=== PATIENT | female | born 1955 | race Caucasian/White ===

== ENCOUNTER 2016-04-12 07:20 | Inpatient (IN) | payer BC ==
[2016-03-31 13:18] LABS: BASOPHILS 0.3 %; BASOPHILS ABSOLUTE 0.02 10/3/uL (0.0-0.16); EOSINOPHILS 3.1 %; EOSINOPHILS ABSOLUTE 0.19 10/3/uL (0.0-0.53); HEMATOCRIT 38.2 % (36.0-48.0); HEMOGLOBIN 12.6 g/dL (12.0-16.0); IMMATURE GRANULOCYTES 0.3 %; IMMATURE GRANULOCYTES ABSOLUTE 0.02 10/3/uL (0.0-0.11); LYMPHOCYTES 27.1 %; LYMPHOCYTES ABSOLUTE 1.67 10/3/uL (0.67-4.30); MEAN CORPUSCULAR HEMOGLOB 28.8 pg (26.0-34.0); MEAN CORPUSCULAR VOLUME 87.4 fL (80-100); MEAN PLATELET VOLUME 9.2 fL (9.2-13.0); MONOCYTES 6.3 %; MONOCYTES ABSOLUTE 0.39 10/3/uL (0.21-1.20); NEUTROPHILS 62.9 %; NEUTROPHILS ABSOLUTE 3.88 10/3/uL (2.02-8.40); PLATELET COUNT 297 10/3/uL (150-400); RBC DISTRIBUTION WIDTH 13.1 % (12.0-16.0); RED CELL COUNT 4.37 10/6/uL (4.0-5.6); WHITE BLOOD CELLS 6.2 10/3/uL (4.5-10.5)
[2016-03-31 13:19] LABS: MANUAL DIFF NO %
[2016-03-31 13:24] LABS: INTERNATIONAL NORMAL RATI 1.1 UNITS (-); PARTIAL THROMBO TIME 28.3 SEC (22.5-37.2); PROTIME (NOT ORD) 13.8 SEC (12.0-14.5)
[2016-03-31 13:30] LABS: A/G RATIO 1.1 (0.7-1.9); ALBUMIN 3.9 G/DL (3.5-5.0); ALKALINE PHOSPHATASE 86 U/L (45-117); BUN (BLOOD UREA NITROGEN) 20 MG/DL (6-23); CALCIUM, SERUM 8.9 MG/DL (8.5-10.4); CHLORIDE, SERUM 104 MMOL/L (96-112); CO2 (CARBON DIOXIDE) 27 MMOL/L (24-34); CREATININE 0.57 MG/DL (0.55-1.02); GFR AFRICAN AMERICAN 115 ML/MIN (>=60); GFR NON AFRICAN AMERICAN 99 ML/MIN (>=60); GLOBULIN 3.4 G/DL (2.5-4.1); GLUCOSE, SERUM 113 MG/DL (60-99); POTASSIUM, SERUM 4.2 MMOL/L (3.5-5.3); SGOT(AST) 20 U/L (5-40); SGPT(ALT) 36 U/L (5-65); SODIUM, SERUM 140 MMOL/L (135-148); TOTAL BILIRUBIN 0.3 MG/DL (0-1.2); TOTAL PROTEIN 7.3 G/DL (6.0-8.5)
[2016-03-31 13:36] LABS: ASCORBIC ACID (UR NOT ORDER) NEG (NEG); BILIRUBIN, URINE NEGATIVE (NEG); KETONE, URINE NEGATIVE (NEG); LEUKOCYTE ESTERASE(NOT OR NEG (NEG); WBC (NOT ORDERED) (RFLEX) < 1 (0-5)
--- NOTE | ~2016-04-12 | OP ---
Record Of Operation [facility] [address] [place]. [address] NAME: ODELL BAKER : 53 STATUS : ADM IN [facility]#: [id number] AGE: 61 ADM/REG DATE : 04/12/16 MR#: [id number] REPORT SERV DATE: 04/12/16 DICTATED BY: DWAYNE ROUSE DATE: 04/12/16 REPORT STATUS : Draft TRANSCRIBED BY: MODL DATE: 04/12/16 DATE OF PROCEDURE: 04/12/2016 PREOPERATIVE DIAGNOSIS: Severe bilateral varus osteoarthritis of the knee. POSTOPERATIVE DIAGNOSIS: Severe bilateral varus osteoarthritis of the knee. PROCEDURE: Bilateral unicondylar knee arthroplasty. SURGEON: Dwayne Rouse M.D. INSPECTOR REPAIRER: Cierra Delgado. SECOND RANCH RIDER: Aury Gandhi. ANESTHESIA: Spinal with MAC. ESTIMATED BLOOD LOSS: 100 mL. COMPLICATIONS: None. DRAINS: Hemovac x1 bilaterally. IMPLANTS: DePuy size 3 right medial and femoral component and size 3 right medial tibial component with an 8 mm thick tibial polyethylene insert on the right. On the left, it was a size 3 of medial femoral component and a size 2 medial tibial component and a 7 mm thick tibial polyethylene insert. The components were cemented in place with [employer] Simplex SpeedSet bone cement. INDICATIONS FOR SURGERY: Ms Baker is a 61-year-old female with severe bilateral varus osteoarthritis of the knees. She has had unremitting pain, which has been refractory to medical management. She presents requesting the above-mentioned procedure. Risks of the procedure as detailed in the history and physical and operative consent were discussed prior to proceeding. She fully understood and has requested to proceed. PROCEDURE IN DETAIL: The patient was brought to the operating room and after adequate anesthesia had been obtained, the patient was positioned in the supine position. All appropriate pressure points were padded. Appropriate preoperative antibiotics were given intravenous. The operative lower extremity was then reaffirmed with a time-out and was then prepped and draped in the usual sterile fashion. The leg was exsanguinated with an Vance wrap and a tourniquet inflated to 350 mmHg pressure. A mini median parapatellar approach to the knee was performed. The skin and subcutaneous tissues were incised sharply with a #10 blade. Electrocautery was used as needed to maintain hemostasis. A retinaculum was divided and minimal subcutaneous flaps created to facilitate exposure. The distal portion of the median Record Of Operation [facility] [address] [place]. [address] NAME: ODELL BAKER : 53 STATUS : ADM IN PAT#: [id number] AGE: 61 ADM/REG DATE : 04/12/16 MR#: [id number] REPORT SERV DATE: 04/12/16 DICTATED BY: DWAYNE ROUSE DATE: 04/12/16 REPORT STATUS : Draft TRANSCRIBED BY: NATALIE DATE: 04/12/16 parapatellar arthrotomy was then carried out with a fresh #10 blade. A portion of the retropatellar fat pad was debrided to facilitate visualization and the ligamentum mucosum resected. The medial tibia was exposed sub-periosteally. The medial meniscus was resected. The knee was then placed in a [id number]-mr-fyca testing and an [employer] retractor used to retract the patellar fat pad. The lateral compartment of the knee was inspected. The articular cartilage was normal in appearance, as was the lateral meniscus. The anterior and posterior cruciate ligaments were inspected and were normal. At this point, it was elected to proceed with an unicondylar knee arthroplasty. Attention was then turned to the tibia. The extramedullary alignment guide was set at neutral varus/valgus to match the patient's posterior tibial slope. A tibial resection was carried out taking 2 mm from the most affected portion of the tibia. The vertical cut of the medial tibial plateau was then created using a reciprocating saw and the tibial fragment excised. The appropriate tibial implant size was then chosen based on the size of the tibial fragment. Attention was then turned to the femur. The extramedullary distal femoral resection guide was secured with the knee in extension and appropriate alignment confirmed. Then a 2-mm distal augment was used to account for the distal femoral cartilage loss. The guide was secured and the distal femoral resection carried out with an oscillating saw. The femur was sized appropriately and the holes drilled for the posterior resection guide. The guide was secured and the anterior chamfer cut was created, the posterior femoral cut created and the posterior chamfer cut was carried out. Once this had been completed, the guide was removed. A curved gouge was used to excise the femoral bone for the anterior flange of the femur. The femoral trial was secured to the femur confirming appropriate varus/valgus and rotational alignment. A tibial trial was then placed and a trial reduction performed. The knee came to full extension and flexed to greater than 120 degrees of gravity force only. The knee was stable in full extension. There was approximately 3-mm of opening to valgus stress at both 30 and 90 degrees of flexion. There was appropriate component to component tracking and rotational orientation. At this point, the final femoral preparation was performed. The cut for the tibial keel was then created using appropriate tibial guide and the bony surfaces copiously irrigated with normal saline and dried. The final components were then cemented in place. Once the cement had fully cured, the knee was carefully inspected and all extruded cement fragments removed. The range of motion and stability were examined and were unchanged. The final tibial polyethylene insert was impacted into the tibial tray. The knee was then copiously irrigated with pulsatile lavage of normal saline. A drain was placed deep to the arthrotomy. The arthrotomy was then repaired using interrupted #1 Vicryl suture in iakpfl-[id number]-pyvry fashion. The subcutaneous tissues approximated using interrupted 2-0 Vicryl suture and skin stapled. After completion of the right knee, the left knee was performed in an identical fashion. Sterile dressings were then applied to both knees. The left tourniquet was deflated. The right tourniquet had previously been deflated. The patient was then awakened taken recovery room in stable Record Of [address] [address] NAME: ODELL BAKER : 53 STATUS : ADM IN [facility]#: [id number] AGE: 61 ADM/REG DATE : 04/12/16 MR#: [id number] REPORT SERV DATE: 04/12/16 DICTATED BY: DWAYNE ROUSE DATE: 04/12/16 REPORT STATUS : Draft TRANSCRIBED BY: MODL DATE: 04/12/16 condition. Postoperative Plan: Patient is to be weightbearing as tolerated, with physical therapy per total knee arthroplasty protocol along with Coumadin and mechanical deep venous thrombosis prophylaxis. /MODL Chris Scott#: [id number] / [id number] CC: Chris Scott M.D.
--- NOTE | ~2016-04-12 | DS ---
Discharge Summary [facility] [address] [facility] [place]. [address] NAME: ODELL BAKER : 53 STATUS : DIS IN PAT#: [id number] AGE: 61 ADM/REG DATE : 04/12/16 MR#: [id number] REPORT SERV DATE: 04/22/16 DICTATED BY: DWAYNE ROUSE DATE: 04/21/16 REPORT STATUS : Draft TRANSCRIBED BY: NATALIE DATE: 04/21/16 Data Collection from hospitalization DISCHARGE DIAGNOSES: 1. Severe bilateral varus osteoarthritis of the knee. 2. Obstructive sleep apnea. 3. Asthma. CONSULTATIONS: None. PROCEDURES PERFORMED: Bilateral unicondylar knee arthroplasty, 04/12/2016. PATHOLOGY: Bone and soft tissue, left knee; total knee arthroplasty - degenerative changes; fatty marrow; synovium; multifocal papillary hyperplasia. No tumor or active inflammation. Bone and soft tissue, right knee; total knee arthroplasty - degenerative changes; fatty marrow with multifocal fibrosis; synovium; focal papillary hyperplasia. No tumor or active inflammation. DISCHARGE MEDICATIONS: Colace 100 mg daily, ferrous sulfate 300 mg twice a day, Theragran tablets one tablet daily, Percocet 5/325 one to two tablets every 4 to 6 hours as needed, MiraLAX powder one packet daily, Metamucil one dose every morning, Probiotic 2 capsules daily, and Coumadin 2.5 mg daily. CONDITION AT DISCHARGE: Stable. DISPOSITION: The patient was discharged home on a regular diet with activities as instructed. She will follow up with me on 04/27/2016. [facility] on 04/16/2016 and for lab work on 04/20/2016. HOSPITAL COURSE: This is a 61-year-old female who had bilateral knee pain, left greater than right. She had this pain for greater than two years. She denied any history of injury. The pain was located medially. X-rays had shown severe bilateral varus osteoarthritis of the knee. Treatment options were discussed, and it was elected to proceed with surgical intervention. She was admitted to the hospital for further evaluation and treatment. Upon admission, she was taken to the operating room where she underwent the above-mentioned procedure. She tolerated this well. There were no complications. On postop day #1, she had good pain control, she had normal distal pulses, her dressings were clean, dry, and intact. The CASH REGISTER SERVICER was discontinued. She was evaluated by Occupational and Physical Therapy. On postop day #2, she had no edema, she had no focal deficits. Discharge planning was performed. She remained medically stable. On 04/15/2016, she was doing much better. She was wanting to go home. Discharge instructions were given. Due to her improved and stable condition, she was discharged home with the above-stated instructions. Information collected by: Clau Sotelo I submit the above information as my discharge summary. Discharge Summary [address] [address] NAME: ODELL BAKER : 53 STATUS : DIS IN PAT#: [id number] AGE: 61 ADM/REG DATE : 04/12/16 MR#: [id number] REPORT SERV DATE: 04/22/16 DICTATED BY: DWAYNE ROUSE DATE: 04/21/16 REPORT STATUS : Draft TRANSCRIBED BY: NATALIE DATE: 04/21/16 TG/NATALIE Dwayne Rouse M.D. / [id number] CC: Chris Scott M.D.
[~2016-04-12 07:20] MED LIST: COD LIVER; DSS PO; METAMUCIL CAN7 OZ PO; MIRALAX POWDER1 PKT PO; PRILO PO; PRILOSEC40 MG PO; PROBIOTIC PO; VOLTXR100 PO
[2016-04-13 05:41] LABS: HEMOGLOBIN 12.7 g/dL (12.0-16.0)
[2016-04-13 05:46] LABS: INTERNATIONAL NORMAL RATI 1.2 UNITS (-); PROTIME (NOT ORD) 14.8 SEC (12.0-14.5)
[2016-04-13 05:57] LABS: CALCIUM, SERUM 8.8 MG/DL (8.5-10.4); CHLORIDE, SERUM 105 MMOL/L (96-112); CO2 (CARBON DIOXIDE) 27 MMOL/L (24-34); CREATININE 0.59 MG/DL (0.55-1.02); GFR AFRICAN AMERICAN 114 ML/MIN (>=60); GFR NON AFRICAN AMERICAN 98 ML/MIN (>=60); GLUCOSE, SERUM 118 MG/DL (60-99); POTASSIUM, SERUM 4.5 MMOL/L (3.5-5.3); SODIUM, SERUM 139 MMOL/L (135-148)
[2016-04-13 05:59] LABS: BUN (BLOOD UREA NITROGEN) 8 MG/DL (6-23)
[2016-04-14 06:10] LABS: HEMATOCRIT 34.9 % (36.0-48.0); HEMOGLOBIN 11.8 g/dL (12.0-16.0); INTERNATIONAL NORMAL RATI 1.5 UNITS (-); PROTIME (NOT ORD) 17.8 SEC (12.0-14.5)
[2016-04-15 06:39] LABS: HEMATOCRIT 32.7 % (36.0-48.0); HEMOGLOBIN 11.1 g/dL (12.0-16.0)
[2016-04-15 06:44] LABS: INTERNATIONAL NORMAL RATI 1.6 UNITS (-); PROTIME (NOT ORD) 19.1 SEC (12.0-14.5)
[2016-04-15] MEDS ORDERED: MVI PO (08:46)
[2016-04-15] MEDS ORDERED: FESO4 PO (08:46)
[2016-04-15] MEDS ORDERED: PCET PO (08:47)
[2016-04-15] MEDS ORDERED: C25 PO (08:48)
== END 2016-04-15 11:10 | disposition home or self-care (01) | DRG 462 ==
LOC: SDC/OF 07:20 → PACU 12:57 → 3SO 14:34
PROVIDERS: Specialist
PROC: 0SRC0J9 Replacement of Right Knee Joint with Synthetic Substitute, Cemented, Open Approach (ICD-10-PCS; 2016-04-12)
PROC: 0SRD0J9 Replacement of Left Knee Joint with Synthetic Substitute, Cemented, Open Approach (ICD-10-PCS; principal; 2016-04-12 09:30)
DX: M17.0 Bilateral primary osteoarthritis of knee (principal); G47.33 Obstructive sleep apnea (adult) (pediatric); K21.9 Gastro-esophageal reflux disease without esophagitis; J45.909 Unspecified asthma, uncomplicated
CPT/HCPCS: 36415; 71020; 80048; 80053; 81001; 85014; 85018; 85025; 85610; 85730; 86850; 86900; 86901; 86920; 87641; 88305; 88311; 93005; 97110-GP; 97116-GP; 97162-GP; 97164-GP; 97165-GO; A9270-GY; C1776; J0583; J0690; J1885; J2250; J2405; J2550; J2795; J3010